=== PATIENT | male | born 1970 | race African-American/Black ===

== ENCOUNTER 2023-07-30 10:52 | Day surgery (SDC) | payer OTHER ==
[~2023-07-30] VITALS: Ht 195.6 cm; Wt 71.2 kg
[2023-07-30] MEDS ORDERED: fentaNYL citrate 0.05 MG/ML VIAL ONE (12:29)
[2023-07-30] MEDS ORDERED: MIDAZOLAM 5 MG/5 ML VIAL ONE (12:29)
[2023-07-30] MEDS ORDERED: diphenhydrAMINE 50 MG/ML VIAL ONE (12:29)
[2023-07-30] MEDS ORDERED: LIDOCAINE 2% 100 MG/5 ML UJET TP ONE (12:30)
[2023-07-30] MEDS ORDERED: MIDAZOLAM 2 MG/2 ML VIAL IVP ONE (14:00)
[2023-07-30] MEDS ORDERED: diphenhydrAMINE 50 MG/ML VIAL IVP ONE (14:00)
[2023-07-30] MEDS ORDERED: fentaNYL citrate 0.05 MG/ML VIAL IVP ONE (14:00)
[2023-07-31] MEDS ORDERED: fentaNYL citrate 0.05 MG/ML VIAL IVP ONE (10:10)
== END 2023-07-30 13:38 | disposition home or self-care (01) ==
LOC: MDS 10:52 → MMU 11:24 → MDS 13:38
PROVIDERS: ATTEND Internal Medicine Gastroenterology
DX: Z12.11 Encounter for screening for malignant neoplasm of colon (principal); K63.5 Polyp of colon; K64.8 Other hemorrhoids; K57.30 Diverticulosis of large intestine without perforation or abscess without bleeding; F17.210 Nicotine dependence, cigarettes, uncomplicated; Z79.899 Other long term (current) drug therapy
CPT/HCPCS: 45385; J1200; J2250; J3010